=== PATIENT | female | born 1960 | race Caucasian/White ===

== ENCOUNTER 2016-04-15 19:30 | Emergency (ER) | payer OTHER ==
[2016-04-15 19:51] VITALS: BP 126/72
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
== END 2016-04-15 20:40 | disposition home or self-care (01) ==
LOC: UCCORT 19:30
DX: S60.221A Contusion of right hand, initial encounter (principal); S00.532A Contusion of oral cavity, initial encounter; V43.52XA Car driver injured in collision with other type car in traffic accident, initial encounter; W22.11XA Striking against or struck by driver side automobile airbag, initial encounter; Y92.9 Unspecified place or not applicable
CPT/HCPCS: 99202; G0463